=== PATIENT | female | born 1990 | race Caucasian/White ===

== ENCOUNTER → 2016-10-11 | Outpatient (CLI) | payer OTHER ==
[2016-10-11 11:09] LABS: BASO % 0.5 %; BASO ABS # 0.02 K/uL (0-0.2); EOS % 1.2 %; HEMATOCRIT 37.5 % (37-47); IG% 0.2 %; LYMPH % 31.9 %; LYMPH ABS # 1.36 K/uL (1.2-3.4); MEAN CORPUSCULAR HEMOGLOBIN 30.6 pg (25-34); MEAN PLATELET VOLUME 12.1 fL (7.4-10.4); MONO % 12.7 %; NEUT % 53.5 %; PLATELET COUNT 185 K/uL (130-400); RED BLOOD COUNT 4.31 M/uL (4.2-5.4); WHITE BLOOD COUNT 4.26 K/uL (4.8-10.8)
[2016-10-11 11:15] LABS: COMPLETE YES; MEAN CORPUSCULAR HGB CONC 35.2 g/dl (32-36)
--- NOTE | 2016-10-11 11:23 | DIAGNOSTIC IMAGING REPORT ---
EXAMINATION: PELVIC ULTRASOUND CLINICAL HISTORY: PELVIC AND PERINEAL PAIN, SEND TO LAB COMPARISON STUDY: None FINDINGS: The uterus measured 7 cm. Intrauterine device placed within the central canal The endometrial stripe measured 6 mm. The right ovary measured 4.1 cm with normal vascular flow. The left ovary measured 3.4 cm with normal vascular flow. There is no ultrasonographic evidence of ovarian torsion. It should be noted that ovarian torsion can be present with normal Doppler ultrasonographic findings. There was no evidence of pathologic free pelvic fluid. IMPRESSION: 1. Intrauterine device within the central uterine canal. 2. Study is otherwise unremarkable. Electronically signed by: Tommy Mistry M.D. 10/11/2016 11:22 AM Dictated Date/Time: 10/11/2016 11:21 AM
== END | disposition home or self-care (01) ==
LOC: C.ULTR 10:08
PROVIDERS: ATTEND Family Medicine
DX: R10.2 Pelvic and perineal pain (principal); N92.0 Excessive and frequent menstruation with regular cycle; Z97.5 Presence of (intrauterine) contraceptive device